=== PATIENT | female | born 1960 | race African-American/Black ===

== ENCOUNTER 2016-11-30 19:50 | Emergency (ER) | payer BC, OTHER ==
[~2016-11-30] VITALS: Ht 170.2 cm; Wt 97.5 kg
[~2016-11-30 19:50] MED LIST: FLEXERIL PO; IBUPROFEN 800800 M1 PO; IBUPROFEN PO; NORCO 5-325 TA1 EACH PO; ONDANSETRON HCL4 M2 PO; TRIAMTERENE-HC1 EAC1 PO
[2016-11-30] MEDS ORDERED: DICLOXACILLIN250 M1 OR (20:04)
[2016-11-30] MEDS ORDERED: ZANTAC 150MG T150 MG PO (20:04)
[2016-11-30] MEDS ORDERED: CLEOCIN HCL150 MG PO (22:32)
[2016-11-30 23:09] VITALS: BP 134/83
== END 2016-11-30 23:10 | disposition home or self-care (01) ==
LOC: ER 19:50
DX: K11.5 Sialolithiasis (principal); I10 Essential (primary) hypertension; M06.9 Rheumatoid arthritis, unspecified; Z88.6 Allergy status to analgesic agent; Z88.8 Allergy status to other drugs, medicaments and biological substances